=== PATIENT | male | born 1970 | race African-American/Black ===

== ENCOUNTER 2018-09-03 09:07 | Inpatient (IN) ==
[2018-09-03] MEDS ORDERED: NALOXONE 0.4 MG/ML VIAL IV STA (09:19)
[2018-09-03] MEDS ORDERED: NALOXONE 0.4 MG/ML VIAL ONE (09:21)
[2018-09-03 09:48] LABS: Basophils % 0.3 % (0.0-0.8); Eosinophils % 0.3 % (0.00-10.9); Hematocrit 40.9 VOL% (42.0-52.0); Hemoglobin 12.6 GM/DL (14.0-18.0); Immature Granulocytes % 0.1 %; Immature Granulocytes Absolute 0.01 #; Lymphocytes # 0.4 10*3/uL (1.4-4.0); Lymphocytes % 5.8 % (21.2-54.2); Mean Corpuscular HGB Conc 30.8 GM/DL (32-36); Mean Corpuscular Volume 93.4 FL (87-102); Mean Platelet Volume 12.4 FL (9.6-12.0); Monocytes % 10.3 % (1.7-12.7); Neutrophils % 83.2 % (38.7-73.9); Platelet Count 119 T/CUMM (130-400); Red Blood Count 4.38 MC/CUMM (3.8-5.5); Red Cell Distribution Width 15.5 % (9.3-17.3); White Blood Count 7.6 T/CUMM (4-12)
[2018-09-03 10:00] LABS: INR 1.1; PT Patient Result 11.4 SECS; Partial Thromboplastin Time 39.5 SECS (0-40)
[2018-09-03 10:05] LABS: Albumin 3.4 G/DL (3.4-5.0); Bilirubin,Total 0.4 MG/DL (0.2-1.0); CKMB % 5.9 %; Calcium 10.2 MG/DL (8.5-10.1); Osmolality,Calculated 300.7 MOS/KG (273-304); Total Protein 8.1 G/DL (6.4-8.3)
[2018-09-03 10:06] LABS: Troponin I 0.061 NG/ML (0.00-0.045)
[2018-09-03] MEDS ORDERED: CALCIUM GLUCONATE 1,000 MG in SODIUM CHLORIDE 0.9% 100 ML IV ONE (10:16)
[2018-09-03] MEDS ORDERED: ALBUTEROL NEB SOLN 5 MG/ML 20 ML/BOTTLE CONT NEB STA (10:17)
[2018-09-03] MEDS ORDERED: CALCIUM GLUCONATE 1,000 MG/10 ML VIAL IV ONE (10:24)
[2018-09-03] MEDS ORDERED: ONDANSETRON 4 MG/2 ML VIAL IV PRN (11:59)
[2018-09-03] MEDS ORDERED: NALOXONE 0.4 MG/ML VIAL IV ONE ×2 (13:36→13:45)
[2018-09-03] MEDS ORDERED: GLUCAGON 1 MG VIAL IM PRN (15:53)
[2018-09-03] MEDS ORDERED: HEPARIN 10,000 UNIT/10 ML VIAL IV SCH ×2 (16:00)
[2018-09-03] MEDS ORDERED: PHENYLEPH/MINERAL OIL/PETROLAT 57 GM TUBE TOP PRN (16:00)
[2018-09-03] MEDS: INSULIN REGULAR 100 UNIT/ML SUBCUT SCH ×2 (17:08→20:41)
[2018-09-03] MEDS: ENOXAPARIN 30 MG/0.3 ML SYRINGE SUBCUT SCH (22:14)
[2018-09-03] MEDS: FAMOTIDINE 20 MG/2 ML VIAL IV SCH (22:15)
[2018-09-04] MEDS: INSULIN REGULAR 100 UNIT/ML SUBCUT SCH ×6 (00:45→19:59)
[2018-09-04 05:22] LABS: Basophils % 0.3 % (0.0-0.8); Eosinophils % 0.1 % (0.00-10.9); Hematocrit 46.2 VOL% (42.0-52.0); Hemoglobin 12.6 GM/DL (14.0-18.0); Immature Granulocytes % 0.8 %; Immature Granulocytes Absolute 0.12 #; Lymphocytes # 0.9 10*3/uL (1.4-4.0); Lymphocytes % 5.7 % (21.2-54.2); Mean Corpuscular HGB Conc 27.3 GM/DL (32-36); Mean Corpuscular Volume 102.2 FL (87-102); Mean Platelet Volume 11.7 FL (9.6-12.0); Monocytes % 13.3 % (1.7-12.7); Neutrophils % 79.8 % (38.7-73.9); Platelet Count 170 T/CUMM (130-400); Red Blood Count 4.52 MC/CUMM (3.8-5.5); Red Cell Distribution Width 15.5 % (9.3-17.3); White Blood Count 15.4 T/CUMM (4-12)
[2018-09-04 05:52] LABS: Calcium 10.2 MG/DL (8.5-10.1); Osmolality,Calculated 293.7 MOS/KG (273-304); Risk Ratio 2.62; Thyroid Stimulating Hormone 0.713 uIU/ml (0.358-3.74); VLDL CHOLESTEROL 35.2 MG/DL
[2018-09-04 05:57] LABS: Hypochromasia Slight; Ovalocytes 2+; Platelet Estimate Normal; Polychromasia Few
[2018-09-04] MEDS ORDERED: ETOMIDATE 20 MG/10 ML VIAL IV ONE (06:49)
[2018-09-04] MEDS ORDERED: ROCURONIUM 100 MG/10 ML VIAL IV ONE (06:50)
[2018-09-04] MEDS ORDERED: VECURONIUM 10 MG VIAL IV ONE (06:53)
[2018-09-04] MEDS ORDERED: NOREPINEPHRINE 4 MG/4 ML VIAL IV ONE (06:53)
[2018-09-04] MEDS: NOREPINEPHRINE 8 MG in SODIUM CHLORIDE 0.9% 242 ML IV PRN ×3 (07:00→21:52)
[2018-09-04] MEDS ORDERED: INSULIN REGULAR 100 UNIT/ML IV ONE (07:05)
[2018-09-04] MEDS ORDERED: SODIUM POLYSTYRENE SULFATE 15 GM/60 ML BOTTLE PO ONE (07:05)
[2018-09-04] MEDS ORDERED: DEXTROSE 50% 25 GM/50 ML SYRINGE IV ONE (07:06)
[2018-09-04] MEDS ORDERED: CALCIUM GLUCONATE 1,000 MG in SODIUM CHLORIDE 0.9% 100 ML IV ONE (07:06)
[2018-09-04] MEDS: PROPOFOL 1,000 MG/100 ML BOTTLE IV SCH ×3 (09:34→21:49)
[2018-09-04] MEDS: cefTRIAXone 1,000 MG in SYRINGE 1 EACH IV SCH (09:44)
[2018-09-04] MEDS: CLINDAMYCIN INJ 600 MG in PREMIX 1 EACH IV SCH ×2 (09:59→17:12)
[2018-09-04 10:05] LABS: Pt O2 Delivery Device Ventilator
[2018-09-04 10:07] LABS: ABG Base Excess -4.1 MMOL/L (-2.5-2.5); ABG HCO3 26.1 MMOL/L (20-26); ABG Oxygen Saturation 98.3 % (95-100); ABG TCO2 28.4 MMOL/L (23-27)
[2018-09-04 10:13] LABS: ABG PH 7.159 (7.35-7.45)
[2018-09-04] MEDS: DEXTROSE 50% 25 GM/50 ML VIAL IV PRN ×2 (16:46→17:02)
[2018-09-04] MEDS: FAMOTIDINE 20 MG/2 ML VIAL IV SCH (20:07)
[2018-09-04] MEDS: ENOXAPARIN 30 MG/0.3 ML SYRINGE SUBCUT SCH (20:07)
[2018-09-05] MEDS: INSULIN REGULAR 100 UNIT/ML SUBCUT SCH ×7 (00:11→23:15)
[2018-09-05] MEDS: CLINDAMYCIN INJ 600 MG in PREMIX 1 EACH IV SCH ×3 (01:30→16:43)
[2018-09-05 03:20] LABS: ABG Base Excess 1.9 MMOL/L (-2.5-2.5); ABG HCO3 26.1 MMOL/L (20-26); ABG Oxygen Saturation 99.8 % (95-100); ABG PH 7.419 (7.35-7.45); ABG TCO2 23.7 MMOL/L (23-27); Allen Test Positive; Pt O2 Delivery Device Ventilator
[2018-09-05] MEDS: PROPOFOL 1,000 MG/100 ML BOTTLE IV SCH ×2 (03:28→12:07)
[2018-09-05 06:19] LABS: Basophils % 0.3 % (0.0-0.8); Eosinophils # 0.1 10*3/uL (0.0-0.87); Hematocrit 35.4 VOL% (42.0-52.0); Hemoglobin 10.7 GM/DL (14.0-18.0); Immature Granulocytes % 0.7 %; Immature Granulocytes Absolute 0.04 #; Lymphocytes # 0.5 10*3/uL (1.4-4.0); Lymphocytes % 7.7 % (21.2-54.2); Mean Corpuscular HGB Conc 30.2 GM/DL (32-36); Mean Corpuscular Volume 92.7 FL (87-102); Mean Platelet Volume 12.5 FL (9.6-12.0); Monocytes % 16.3 % (1.7-12.7); Red Blood Count 3.82 MC/CUMM (3.8-5.5); Red Cell Distribution Width 15.6 % (9.3-17.3)
[2018-09-05 06:21] LABS: Platelet Count 94 T/CUMM (130-400)
[2018-09-05 06:36] LABS: Calcium 10.7 MG/DL (8.5-10.1); Osmolality,Calculated 285.5 MOS/KG (273-304)
[2018-09-05 06:51] LABS: Band Neutrophils 2 % (0-10); Eosinophils 2 % (0-10); Hypochromasia 1+; Lymphocytes 7 % (20-55); Ovalocytes Slight; Platelet Estimate Decreased; Segmented Neutrophils 79 % (50-85); Total Cells Counted 100
[2018-09-05] MEDS: cefTRIAXone 1,000 MG in SYRINGE 1 EACH IV SCH (08:44)
[2018-09-05] MEDS: METOPROLOL TARTRATE 50 MG TABLET PO SCH ×2 (10:13→20:08)
[2018-09-05] MEDS: DEXMEDETOMIDINE 200 MCG in SODIUM CHLORIDE 0.9% 48 ML IV PRN ×3 (12:04→23:16)
[2018-09-05] MEDS: NOREPINEPHRINE 8 MG in SODIUM CHLORIDE 0.9% 242 ML IV PRN (13:38)
[2018-09-05] MEDS: ENOXAPARIN 30 MG/0.3 ML SYRINGE SUBCUT SCH (20:08)
[2018-09-05] MEDS: FAMOTIDINE 20 MG/2 ML VIAL IV SCH (20:08)
[2018-09-06] MEDS: CLINDAMYCIN INJ 600 MG in PREMIX 1 EACH IV SCH ×3 (02:23→17:51)
[2018-09-06] MEDS: INSULIN REGULAR 100 UNIT/ML SUBCUT SCH ×6 (03:13→23:39)
[2018-09-06] MEDS: NOREPINEPHRINE 8 MG in SODIUM CHLORIDE 0.9% 242 ML IV PRN (03:15)
[2018-09-06 05:50] LABS: Basophils % 0.3 % (0.0-0.8); Eosinophils # 0.1 10*3/uL (0.0-0.87); Eosinophils % 1.7 % (0.00-10.9); Hematocrit 31.6 VOL% (42.0-52.0); Hemoglobin 9.5 GM/DL (14.0-18.0); Immature Granulocytes % 0.9 %; Immature Granulocytes Absolute 0.06 #; Lymphocytes # 0.8 10*3/uL (1.4-4.0); Lymphocytes % 12.1 % (21.2-54.2); Mean Corpuscular HGB Conc 30.1 GM/DL (32-36); Mean Corpuscular Volume 92.7 FL (87-102); Mean Platelet Volume 12.4 FL (9.6-12.0); Red Blood Count 3.41 MC/CUMM (3.8-5.5); Red Cell Distribution Width 15.6 % (9.3-17.3); White Blood Count 6.9 T/CUMM (4-12)
[2018-09-06 05:52] LABS: Platelet Count 84 T/CUMM (130-400)
[2018-09-06 06:01] LABS: Calcium 10.1 MG/DL (8.5-10.1); Osmolality,Calculated 285.8 MOS/KG (273-304)
[2018-09-06 06:15] LABS: Band Neutrophils 4 % (0-10); Eosinophils 2 % (0-10); Lymphocytes 18 % (20-55); Segmented Neutrophils 71 % (50-85); Total Cells Counted 100
[2018-09-06 06:16] LABS: Atypical Lymphocytes Few; Hypochromasia 1+; Microcytosis Slight; Ovalocytes Slight
[2018-09-06 06:17] LABS: Platelet Estimate Decreased
[2018-09-06] MEDS: DEXMEDETOMIDINE 200 MCG in SODIUM CHLORIDE 0.9% 48 ML IV PRN ×3 (07:51→19:39)
[2018-09-06] MEDS: DEXTROSE 50% 25 GM/50 ML VIAL IV PRN (07:52)
[2018-09-06] MEDS: cefTRIAXone 1,000 MG in SYRINGE 1 EACH IV SCH (08:27)
[2018-09-06] MEDS: METOPROLOL TARTRATE 50 MG TABLET PO SCH ×2 (08:36→20:18)
[2018-09-06] MEDS: PROPOFOL 1,000 MG/100 ML BOTTLE IV SCH (10:13)
[2018-09-06] MEDS: ATORVASTATIN 40 MG TABLET PO SCH (20:18)
[2018-09-06] MEDS: ENOXAPARIN 30 MG/0.3 ML SYRINGE SUBCUT SCH (20:18)
[2018-09-06] MEDS: FAMOTIDINE 20 MG/2 ML VIAL IV SCH (20:18)
[2018-09-07] MEDS: DEXMEDETOMIDINE 200 MCG in SODIUM CHLORIDE 0.9% 48 ML IV PRN ×2 (00:14→05:54)
[2018-09-07] MEDS: CLINDAMYCIN INJ 600 MG in PREMIX 1 EACH IV SCH ×2 (00:15→09:31)
[2018-09-07 03:32] LABS: Allen Test Positive; Pt O2 Delivery Device Ventilator
[2018-09-07 03:35] LABS: ABG HCO3 24.5 MMOL/L (20-26); ABG Oxygen Saturation 99.3 % (95-100); ABG PCO2 34.1 MM HG (35-48); ABG PH 7.449 (7.35-7.45); ABG TCO2 21.5 MMOL/L (23-27)
[2018-09-07] MEDS: INSULIN REGULAR 100 UNIT/ML SUBCUT SCH ×5 (03:51→19:57)
[2018-09-07 05:21] LABS: Basophils % 0.2 % (0.0-0.8); Eosinophils # 0.1 10*3/uL (0.0-0.87); Hematocrit 30.8 VOL% (42.0-52.0); Hemoglobin 9.4 GM/DL (14.0-18.0); Immature Granulocytes % 0.8 %; Immature Granulocytes Absolute 0.04 #; Lymphocytes # 0.5 10*3/uL (1.4-4.0); Lymphocytes % 9.7 % (21.2-54.2); Mean Corpuscular HGB Conc 30.5 GM/DL (32-36); Mean Corpuscular Volume 90.6 FL (87-102); Mean Platelet Volume 12.3 FL (9.6-12.0); Monocytes % 16.3 % (1.7-12.7); Red Cell Distribution Width 15.7 % (9.3-17.3)
[2018-09-07 05:25] LABS: Platelet Count 99 T/CUMM (130-400)
[2018-09-07 05:44] LABS: Eosinophils 2 % (0-10); Hypochromasia 1+; Lymphocytes 9 % (20-55); Platelet Estimate Decreased; Segmented Neutrophils 68 % (50-85); Total Cells Counted 100
[2018-09-07 05:44] LABS: Osmolality,Calculated 284.8 MOS/KG (273-304); Prealbumin 14.6 MG/DL (20-40)
[2018-09-07 05:45] LABS: Calcium 10.2 MG/DL (8.5-10.1); Microcytosis Slight; Osmolality,Calculated 286.7 MOS/KG (273-304); Ovalocytes Slight
[2018-09-07] MEDS ORDERED: ASPIRIN EC 81 MG TABLET PO SCH (08:00)
[2018-09-07] MEDS: METOPROLOL TARTRATE 50 MG TABLET PO SCH ×2 (09:21→22:52)
[2018-09-07] MEDS: cefTRIAXone 1,000 MG in SYRINGE 1 EACH IV SCH (09:31)
[2018-09-07] MEDS: ASPIRIN CHEW 81 MG TABLET PO SCH (09:31)
[2018-09-07] MEDS ORDERED: VANCOMYCIN INJ 500 MG in SODIUM CHLORIDE 0.9% 100 ML IV PRN (13:25)
[2018-09-07] MEDS ORDERED: VANCOMYCIN INJ 1,250 MG in SODIUM CHLORIDE 0.9% 250 ML IV ONE (14:00)
[2018-09-07] MEDS: SEVELAMER CARBONATE 800 MG TABLET PO SCH (14:42)
[2018-09-07] MEDS: SEVELAMER CARBONATE POWDER 2.4 GM PACK PO SCH (18:06)
[2018-09-07] MEDS ORDERED: ACETAMINOPHEN 325 MG/10.15 ML UDCUP PO PRN (19:03)
[2018-09-07] MEDS: ENOXAPARIN 30 MG/0.3 ML SYRINGE SUBCUT SCH (20:08)
[2018-09-07] MEDS: FAMOTIDINE 20 MG/2 ML VIAL IV SCH (20:09)
[2018-09-07] MEDS: ATORVASTATIN 40 MG TABLET PO SCH (20:09)
[2018-09-08] MEDS: INSULIN REGULAR 100 UNIT/ML SUBCUT SCH ×6 (00:02→20:40)
[2018-09-08 03:35] LABS: Allen Test Positive; Pt O2 Delivery Device Ventilator
[2018-09-08 03:38] LABS: ABG Base Excess -0.4 MMOL/L (-2.5-2.5); ABG HCO3 24.1 MMOL/L (20-26); ABG Oxygen Saturation 96.8 % (95-100); ABG PCO2 42.1 MM HG (35-48); ABG PH 7.378 (7.35-7.45); ABG PO2 94.5 MM HG (80-95); ABG TCO2 22.8 MMOL/L (23-27)
[2018-09-08 05:18] LABS: Basophils % 0.2 % (0.0-0.8); Eosinophils # 0.1 10*3/uL (0.0-0.87); Eosinophils % 2.7 % (0.00-10.9); Hematocrit 28.7 VOL% (42.0-52.0); Hemoglobin 9.1 GM/DL (14.0-18.0); Immature Granulocytes % 0.4 %; Immature Granulocytes Absolute 0.02 #; Lymphocytes # 0.5 10*3/uL (1.4-4.0); Lymphocytes % 10.6 % (21.2-54.2); Mean Corpuscular HGB Conc 31.7 GM/DL (32-36); Mean Corpuscular Volume 89.1 FL (87-102); Mean Platelet Volume 11.1 FL (9.6-12.0); Neutrophils % 72.1 % (38.7-73.9); Red Blood Count 3.22 MC/CUMM (3.8-5.5); Red Cell Distribution Width 15.7 % (9.3-17.3); White Blood Count 4.7 T/CUMM (4-12)
[2018-09-08 05:20] LABS: Platelet Count 96 T/CUMM (130-400)
[2018-09-08 05:42] LABS: Calcium 9.7 MG/DL (8.5-10.1); Osmolality,Calculated 291.1 MOS/KG (273-304)
[2018-09-08] MEDS ORDERED: CLINDAMYCIN INJ 600 MG in PREMIX 1 EACH IV SCH (09:00)
[2018-09-08] MEDS: SEVELAMER CARBONATE POWDER 2.4 GM PACK PO SCH ×3 (09:15→17:27)
[2018-09-08] MEDS: cefTRIAXone 1,000 MG in SYRINGE 1 EACH IV SCH (09:16)
[2018-09-08] MEDS: METOPROLOL TARTRATE 50 MG TABLET PO SCH (10:14)
[2018-09-08] MEDS: METOPROLOL TARTRATE 25 MG TABLET PO SCH ×2 (13:44→20:20)
[2018-09-08] MEDS: ASPIRIN CHEW 81 MG TABLET PO SCH (13:44)
[2018-09-08] MEDS ORDERED: ALBUTEROL/IPRATROPIUM 3 ML NEB RESP TX PRN (14:59)
[2018-09-08] MEDS: SEVELAMER CARBONATE 800 MG TABLET PO SCH (15:14)
[2018-09-08] MEDS: ALBUTEROL/IPRATROPIUM 3 ML NEB RESP TX SCH ×3 (15:32→23:07)
[2018-09-08] MEDS: ACETYLCYSTEINE 20% 800 MG/4 ML VIAL RESP TX SCH ×2 (15:32→23:07)
[2018-09-08 16:16] LABS: ABG HCO3 22.6 MMOL/L (20-26); ABG Oxygen Saturation 92.7 % (95-100); ABG PCO2 49.6 MM HG (35-48); ABG PH 7.307 (7.35-7.45); ABG PO2 75.8 MM HG (80-95); ABG TCO2 22.4 MMOL/L (23-27); Allen Test Positive; Pt O2 Delivery Device Simple Mask
[2018-09-08] MEDS ORDERED: VANCOMYCIN INJ 500 MG in SODIUM CHLORIDE 0.9% 100 ML IV PRN (16:20)
[2018-09-08] MEDS ORDERED: ETOMIDATE 20 MG/10 ML VIAL IV ONE ×4 (16:29→16:47)
[2018-09-08] MEDS ORDERED: SUCCINYLCHOLINE 200 MG/10 ML VIAL ONE (16:30)
[2018-09-08] MEDS ORDERED: SUCCINYLCHOLINE 200 MG/10 ML VIAL IV ONE (16:45)
[2018-09-08] MEDS: PROPOFOL 1,000 MG/100 ML BOTTLE IV SCH ×2 (16:55→21:02)
[2018-09-08] MEDS ORDERED: VANCOMYCIN INJ 500 MG in SODIUM CHLORIDE 0.9% 100 ML IV ONE (17:00)
[2018-09-08] MEDS ORDERED: DEXMEDETOMIDINE 200 MCG in SODIUM CHLORIDE 0.9% 48 ML IV PRN (17:30)
[2018-09-08 18:39] LABS: ABG Base Excess -0.5 MMOL/L (-2.5-2.5); ABG Oxygen Saturation 99.9 % (95-100); ABG PCO2 31.6 MM HG (35-48); ABG PH 7.463 (7.35-7.45); ABG TCO2 20.5 MMOL/L (23-27); Allen Test Positive; Pt O2 Delivery Device Ventilator
[2018-09-08] MEDS: ENOXAPARIN 30 MG/0.3 ML SYRINGE SUBCUT SCH (20:20)
[2018-09-08] MEDS: ATORVASTATIN 40 MG TABLET PO SCH (20:21)
[2018-09-08 21:21] LABS: ABG Base Excess -1.7 MMOL/L (-2.5-2.5); ABG Oxygen Saturation 99.5 % (95-100); ABG PCO2 38.5 MM HG (35-48); ABG PH 7.385 (7.35-7.45); Allen Test Positive; Pt O2 Delivery Device Ventilator
[2018-09-08] MEDS: FAMOTIDINE 20 MG/2 ML VIAL IV SCH (21:59)
[2018-09-08] MEDS ORDERED: DEXTROSE 10% 250 ML BAG IV ONE (22:25)
[2018-09-08] MEDS: DEXTROSE 10% 250 ML IV SCH (23:00)
[2018-09-09] MEDS: ALBUTEROL/IPRATROPIUM 3 ML NEB RESP TX SCH ×6 (02:07→23:05)
[2018-09-09] MEDS: PROPOFOL 1,000 MG/100 ML BOTTLE IV SCH ×6 (03:16→21:41)
[2018-09-09 03:56] LABS: ABG Base Excess -2.3 MMOL/L (-2.5-2.5); ABG HCO3 22.4 MMOL/L (20-26); ABG Oxygen Saturation 95.4 % (95-100); ABG PCO2 39.3 MM HG (35-48); ABG PO2 82.2 MM HG (80-95); ABG TCO2 20.8 MMOL/L (23-27); Allen Test Positive; Pt O2 Delivery Device Ventilator
[2018-09-09] MEDS: INSULIN REGULAR 100 UNIT/ML SUBCUT SCH ×6 (04:30→20:27)
[2018-09-09] MEDS: DEXTROSE 10% 250 ML IV PRN ×2 (04:45→07:54)
[2018-09-09 05:42] LABS: Eosinophils # 0.1 10*3/uL (0.0-0.87); Eosinophils % 4.1 % (0.00-10.9); Hemoglobin 9.2 GM/DL (14.0-18.0); Immature Granulocytes % 0.6 %; Immature Granulocytes Absolute 0.02 #; Lymphocytes # 0.5 10*3/uL (1.4-4.0); Lymphocytes % 15.1 % (21.2-54.2); Mean Corpuscular HGB Conc 31.7 GM/DL (32-36); Mean Corpuscular Volume 89.2 FL (87-102); Mean Platelet Volume 11.7 FL (9.6-12.0); Neutrophils % 62.2 % (38.7-73.9); Platelet Count 106 T/CUMM (130-400); Red Blood Count 3.25 MC/CUMM (3.8-5.5); Red Cell Distribution Width 15.8 % (9.3-17.3); White Blood Count 3.4 T/CUMM (4-12)
[2018-09-09 06:03] LABS: Calcium 10.2 MG/DL (8.5-10.1)
[2018-09-09 06:20] LABS: Band Neutrophils 1 % (0-10); Eosinophils 5 % (0-10); Hypochromasia 1+; Lymphocytes 11 % (20-55); Ovalocytes Slight; Platelet Estimate Decreased; Segmented Neutrophils 71 % (50-85); Total Cells Counted 100
[2018-09-09 06:21] LABS: Microcytosis Slight
[2018-09-09] MEDS: ACETYLCYSTEINE 20% 800 MG/4 ML VIAL RESP TX SCH ×3 (06:59→23:05)
[2018-09-09] MEDS: DEXTROSE 10% 250 ML IV SCH ×3 (08:15→17:46)
[2018-09-09] MEDS: ASPIRIN CHEW 81 MG TABLET PO SCH (08:58)
[2018-09-09] MEDS: SEVELAMER CARBONATE POWDER 2.4 GM PACK PO SCH ×3 (09:01→17:47)
[2018-09-09] MEDS: cefTRIAXone 1,000 MG in SYRINGE 1 EACH IV SCH (09:02)
[2018-09-09] MEDS: METOPROLOL TARTRATE 25 MG TABLET PO SCH ×2 (10:00→20:03)
[2018-09-09] MEDS ORDERED: LEVOFLOXACIN INJ 750 MG in PREMIX 1 EACH IV ONE (13:00)
[2018-09-09] MEDS: SEVELAMER CARBONATE 800 MG TABLET PO SCH (13:50)
[2018-09-09] MEDS ORDERED: ALBUMIN 25% 25 GM in PREMIX 1 EACH IV ONE (15:30)
[2018-09-09] MEDS ORDERED: LORazepam 2 MG/1 ML VIAL IV ONE (17:00)
[2018-09-09] MEDS: methylPREDNISolone SOD SUC 40 MG/1 ML VIAL IV SCH ×2 (17:41→21:16)
[2018-09-09] MEDS: FAMOTIDINE 20 MG/2 ML VIAL IV SCH (20:03)
[2018-09-09] MEDS: ENOXAPARIN 30 MG/0.3 ML SYRINGE SUBCUT SCH (20:03)
[2018-09-09] MEDS: ATORVASTATIN 40 MG TABLET PO SCH (20:03)
[2018-09-10] MEDS: INSULIN REGULAR 100 UNIT/ML SUBCUT SCH ×7 (00:45→23:56)
[2018-09-10] MEDS: PROPOFOL 1,000 MG/100 ML BOTTLE IV SCH ×7 (01:45→19:57)
[2018-09-10] MEDS: DEXTROSE 10% 250 ML IV SCH ×2 (02:12→08:20)
[2018-09-10] MEDS: ALBUTEROL/IPRATROPIUM 3 ML NEB RESP TX SCH ×6 (03:35→23:15)
[2018-09-10 03:42] LABS: ABG Base Excess -4.2 MMOL/L (-2.5-2.5); ABG HCO3 21.2 MMOL/L (20-26); ABG Oxygen Saturation 77.5 % (95-100); ABG PCO2 39.7 MM HG (35-48); ABG PH 7.345 (7.35-7.45); ABG PO2 52.9 MM HG (80-95); ABG TCO2 22.4 MMOL/L (23-27); Allen Test Positive; Pt O2 Delivery Device Ventilator
[2018-09-10] MEDS: methylPREDNISolone SOD SUC 40 MG/1 ML VIAL IV SCH ×3 (05:07→21:28)
[2018-09-10 05:50] LABS: Calcium 9.7 MG/DL (8.5-10.1); Osmolality,Calculated 284.2 MOS/KG (273-304)
[2018-09-10] MEDS: ACETYLCYSTEINE 20% 800 MG/4 ML VIAL RESP TX SCH ×3 (07:05→23:15)
[2018-09-10 07:30] LABS: ABG Base Excess -5.4 MMOL/L (-2.5-2.5); ABG Oxygen Saturation 99.4 % (95-100); ABG PCO2 33.7 MM HG (35-48); ABG PH 7.366 (7.35-7.45); ABG TCO2 17.8 MMOL/L (23-27); Allen Test Positive; Pt O2 Delivery Device Ventilator
[2018-09-10] MEDS: ASPIRIN CHEW 81 MG TABLET PO SCH (09:04)
[2018-09-10] MEDS: SEVELAMER CARBONATE POWDER 2.4 GM PACK PO SCH ×3 (09:04→17:09)
[2018-09-10] MEDS: METOPROLOL TARTRATE 25 MG TABLET PO SCH ×2 (09:38→21:27)
[2018-09-10] MEDS: SEVELAMER CARBONATE 800 MG TABLET PO SCH (13:10)
[2018-09-10 15:48] LABS: Allen Test Positive; Pt O2 Delivery Device Ventilator
[2018-09-10 15:49] LABS: ABG Base Excess -3.4 MMOL/L (-2.5-2.5); ABG HCO3 21.4 MMOL/L (20-26); ABG Oxygen Saturation 83.2 % (95-100); ABG PH 7.321 (7.35-7.45); ABG TCO2 20.8 MMOL/L (23-27)
[2018-09-10] MEDS ORDERED: BISACODYL 5 MG TABLET PO ONE (15:53)
[2018-09-10] MEDS: METOCLOPRAMIDE 10 MG/2 ML VIAL IV SCH ×2 (17:54→23:56)
[2018-09-10 18:36] LABS: ABG Base Excess -3.4 MMOL/L (-2.5-2.5); ABG HCO3 21.6 MMOL/L (20-26); ABG Oxygen Saturation 95.4 % (95-100); ABG PCO2 36.2 MM HG (35-48); ABG PH 7.378 (7.35-7.45); ABG PO2 80.2 MM HG (80-95); ABG TCO2 19.3 MMOL/L (23-27); Allen Test Positive; Pt O2 Delivery Device Ventilator
[2018-09-10] MEDS: ATORVASTATIN 40 MG TABLET PO SCH (21:27)
[2018-09-10] MEDS: ENOXAPARIN 30 MG/0.3 ML SYRINGE SUBCUT SCH (21:28)
[2018-09-10] MEDS: POLYETHYLENE GLYCOL POWDER 17 GM PACK PO SCH (21:29)
[2018-09-10] MEDS: FAMOTIDINE 20 MG/2 ML VIAL IV SCH (21:29)
[2018-09-11] MEDS: PROPOFOL 1,000 MG/100 ML BOTTLE IV SCH ×9 (00:05→21:20)
[2018-09-11] MEDS: ALBUTEROL/IPRATROPIUM 3 ML NEB RESP TX SCH ×6 (02:50→22:55)
[2018-09-11] MEDS: INSULIN REGULAR 100 UNIT/ML SUBCUT SCH ×5 (04:31→21:15)
[2018-09-11 04:56] LABS: ABG Base Excess -3.9 MMOL/L (-2.5-2.5); ABG HCO3 21.2 MMOL/L (20-26); ABG Oxygen Saturation 98.5 % (95-100); ABG PCO2 34.5 MM HG (35-48); ABG PH 7.383 (7.35-7.45); ABG TCO2 18.8 MMOL/L (23-27)
[2018-09-11 05:12] LABS: Hematocrit 28.9 VOL% (42.0-52.0); Hemoglobin 9.5 GM/DL (14.0-18.0); Immature Granulocytes % 1.2 %; Immature Granulocytes Absolute 0.06 #; Lymphocytes # 0.3 10*3/uL (1.4-4.0); Lymphocytes % 5.4 % (21.2-54.2); Mean Corpuscular HGB Conc 32.9 GM/DL (32-36); Mean Corpuscular Volume 87.6 FL (87-102); Monocytes % 9.8 % (1.7-12.7); Neutrophils % 83.6 % (38.7-73.9); Platelet Count 147 T/CUMM (130-400); Red Cell Distribution Width 15.7 % (9.3-17.3)
[2018-09-11] MEDS: methylPREDNISolone SOD SUC 40 MG/1 ML VIAL IV SCH ×3 (05:40→21:15)
[2018-09-11] MEDS: METOCLOPRAMIDE 10 MG/2 ML VIAL IV SCH ×3 (05:41→17:55)
[2018-09-11] MEDS: ACETYLCYSTEINE 20% 800 MG/4 ML VIAL RESP TX SCH ×3 (07:35→22:55)
[2018-09-11] MEDS ORDERED: BISACODYL 5 MG TABLET PO ONE (08:36)
[2018-09-11 08:52] LABS: Albumin 2.9 G/DL (3.4-5.0); Calcium 9.6 MG/DL (8.5-10.1); Osmolality,Calculated 287.7 MOS/KG (273-304)
[2018-09-11] MEDS: LACTULOSE 20 GM/30 ML UDCUP PO SCH (08:55)
[2018-09-11] MEDS: METOPROLOL TARTRATE 25 MG TABLET PO SCH ×2 (08:56→21:14)
[2018-09-11] MEDS: ASPIRIN CHEW 81 MG TABLET PO SCH (08:57)
[2018-09-11] MEDS: POLYETHYLENE GLYCOL POWDER 17 GM PACK PO SCH ×2 (08:57→21:14)
[2018-09-11] MEDS: SEVELAMER CARBONATE POWDER 2.4 GM PACK PO SCH ×3 (08:57→17:54)
[2018-09-11] MEDS: POTASSIUM IODIDE ORAL SOLN 1,000 MG/ML BOTTLE PO SCH ×3 (09:10→21:16)
[2018-09-11] MEDS: LEVOFLOXACIN INJ 500 MG in PREMIX 1 EACH IV SCH (12:45)
[2018-09-11] MEDS: SEVELAMER CARBONATE 800 MG TABLET PO SCH (13:54)
[2018-09-11] MEDS: ENOXAPARIN 30 MG/0.3 ML SYRINGE SUBCUT SCH (21:14)
[2018-09-11] MEDS: FAMOTIDINE 20 MG/2 ML VIAL IV SCH (21:15)
[2018-09-11] MEDS: ATORVASTATIN 40 MG TABLET PO SCH (21:15)
[2018-09-12] MEDS: INSULIN REGULAR 100 UNIT/ML SUBCUT SCH ×6 (00:13→20:21)
[2018-09-12] MEDS: METOCLOPRAMIDE 10 MG/2 ML VIAL IV SCH ×4 (00:13→18:14)
[2018-09-12] MEDS: PROPOFOL 1,000 MG/100 ML BOTTLE IV SCH ×7 (00:14→21:03)
[2018-09-12] MEDS: ALBUTEROL/IPRATROPIUM 3 ML NEB RESP TX SCH ×5 (02:00→20:13)
[2018-09-12 04:00] LABS: ABG Base Excess -5.2 MMOL/L (-2.5-2.5); ABG HCO3 20.1 MMOL/L (20-26); ABG Oxygen Saturation 97.7 % (95-100); ABG PCO2 36.5 MM HG (35-48); ABG PH 7.346 (7.35-7.45); ABG TCO2 18.4 MMOL/L (23-27); Allen Test Positive; Pt O2 Delivery Device Ventilator
[2018-09-12] MEDS: methylPREDNISolone SOD SUC 40 MG/1 ML VIAL IV SCH ×3 (05:35→21:02)
[2018-09-12 05:40] LABS: Basophils % 0.2 % (0.0-0.8); Hematocrit 28.9 VOL% (42.0-52.0); Hemoglobin 9.4 GM/DL (14.0-18.0); Immature Granulocytes % 2.6 %; Immature Granulocytes Absolute 0.12 #; Lymphocytes # 0.5 10*3/uL (1.4-4.0); Lymphocytes % 9.8 % (21.2-54.2); Mean Corpuscular HGB Conc 32.5 GM/DL (32-36); Mean Corpuscular Volume 87.6 FL (87-102); Mean Platelet Volume 11.4 FL (9.6-12.0); Monocytes % 9.3 % (1.7-12.7); Neutrophils % 78.1 % (38.7-73.9); Platelet Count 170 T/CUMM (130-400); Red Cell Distribution Width 15.9 % (9.3-17.3); White Blood Count 4.6 T/CUMM (4-12)
[2018-09-12 07:03] LABS: Calcium 9.5 MG/DL (8.5-10.1); Osmolality,Calculated 284.5 MOS/KG (273-304)
[2018-09-12] MEDS: ACETYLCYSTEINE 20% 800 MG/4 ML VIAL RESP TX SCH ×2 (07:35→15:00)
[2018-09-12 08:22] LABS: Prealbumin 24.6 MG/DL (20-40)
[2018-09-12] MEDS: SEVELAMER CARBONATE POWDER 2.4 GM PACK PO SCH ×3 (09:35→18:14)
[2018-09-12] MEDS: POLYETHYLENE GLYCOL POWDER 17 GM PACK PO SCH ×2 (09:35→20:23)
[2018-09-12] MEDS: LACTULOSE 20 GM/30 ML UDCUP PO SCH (09:35)
[2018-09-12] MEDS: METOPROLOL TARTRATE 25 MG TABLET PO SCH ×2 (09:36→20:22)
[2018-09-12] MEDS: ASPIRIN CHEW 81 MG TABLET PO SCH (09:36)
[2018-09-12] MEDS: POTASSIUM IODIDE ORAL SOLN 1,000 MG/ML BOTTLE PO SCH (10:02)
[2018-09-12] MEDS: SEVELAMER CARBONATE 800 MG TABLET PO SCH (13:49)
[2018-09-12] MEDS: ATORVASTATIN 40 MG TABLET PO SCH (20:22)
[2018-09-12] MEDS: ENOXAPARIN 30 MG/0.3 ML SYRINGE SUBCUT SCH (20:22)
[2018-09-12] MEDS: FAMOTIDINE 20 MG/2 ML VIAL IV SCH (20:23)
[2018-09-13] MEDS: ALBUTEROL/IPRATROPIUM 3 ML NEB RESP TX SCH ×7 (00:23→23:15)
[2018-09-13] MEDS: ACETYLCYSTEINE 20% 800 MG/4 ML VIAL RESP TX SCH ×4 (00:23→23:15)
[2018-09-13] MEDS: INSULIN REGULAR 100 UNIT/ML SUBCUT SCH ×6 (00:36→20:23)
[2018-09-13] MEDS: METOCLOPRAMIDE 10 MG/2 ML VIAL IV SCH ×4 (00:54→18:19)
[2018-09-13] MEDS: PROPOFOL 1,000 MG/100 ML BOTTLE IV SCH ×9 (00:55→23:40)
[2018-09-13 03:39] LABS: ABG Base Excess -2.5 MMOL/L (-2.5-2.5); ABG HCO3 22.3 MMOL/L (20-26); ABG Oxygen Saturation 97.5 % (95-100); ABG PCO2 37.5 MM HG (35-48); ABG PH 7.381 (7.35-7.45); ABG TCO2 20.3 MMOL/L (23-27); Allen Test Positive; Pt O2 Delivery Device Ventilator
[2018-09-13 05:25] LABS: Hematocrit 28.2 VOL% (42.0-52.0); Hemoglobin 9.4 GM/DL (14.0-18.0); Immature Granulocytes % 5.7 %; Immature Granulocytes Absolute 0.23 #; Lymphocytes # 0.5 10*3/uL (1.4-4.0); Lymphocytes % 13.3 % (21.2-54.2); Mean Corpuscular HGB Conc 33.3 GM/DL (32-36); Mean Corpuscular Volume 84.7 FL (87-102); Mean Platelet Volume 10.8 FL (9.6-12.0); Monocytes % 12.1 % (1.7-12.7); Neutrophils % 68.9 % (38.7-73.9); Platelet Count 186 T/CUMM (130-400); Red Blood Count 3.33 MC/CUMM (3.8-5.5); Red Cell Distribution Width 15.9 % (9.3-17.3); White Blood Count 4.1 T/CUMM (4-12)
[2018-09-13 05:43] LABS: Calcium 9.6 MG/DL (8.5-10.1); Osmolality,Calculated 281.2 MOS/KG (273-304)
[2018-09-13 05:56] LABS: Lymphocytes 15 % (20-55); Segmented Neutrophils 70 % (50-85); Total Cells Counted 100
[2018-09-13 05:57] LABS: Hypochromasia 1+; Microcytosis 1+; Ovalocytes Slight
[2018-09-13 05:58] LABS: Platelet Estimate Adequate
[2018-09-13] MEDS: methylPREDNISolone SOD SUC 40 MG/1 ML VIAL IV SCH ×3 (06:14→21:19)
[2018-09-13] MEDS: LACTULOSE 20 GM/30 ML UDCUP PO SCH (08:32)
[2018-09-13] MEDS: POLYETHYLENE GLYCOL POWDER 17 GM PACK PO SCH ×2 (08:36→21:19)
[2018-09-13] MEDS: ASPIRIN CHEW 81 MG TABLET PO SCH (08:36)
[2018-09-13] MEDS: METOPROLOL TARTRATE 25 MG TABLET PO SCH ×2 (08:36→21:18)
[2018-09-13] MEDS: SEVELAMER CARBONATE POWDER 2.4 GM PACK PO SCH ×3 (08:37→18:16)
[2018-09-13] MEDS: LEVOFLOXACIN INJ 500 MG in PREMIX 1 EACH IV SCH (15:24)
[2018-09-13] MEDS: ATORVASTATIN 40 MG TABLET PO SCH ×2 (20:54→21:21)
[2018-09-13] MEDS: ENOXAPARIN 30 MG/0.3 ML SYRINGE SUBCUT SCH (21:19)
[2018-09-13] MEDS: FAMOTIDINE 20 MG/2 ML VIAL IV SCH (21:19)
[2018-09-14] MEDS: INSULIN REGULAR 100 UNIT/ML SUBCUT SCH ×7 (00:39→23:24)
[2018-09-14] MEDS: PROPOFOL 1,000 MG/100 ML BOTTLE IV SCH ×3 (00:56→06:05)
[2018-09-14] MEDS: METOCLOPRAMIDE 10 MG/2 ML VIAL IV SCH ×5 (00:59→23:25)
[2018-09-14] MEDS: ALBUTEROL/IPRATROPIUM 3 ML NEB RESP TX SCH ×6 (03:45→23:14)
[2018-09-14 04:04] LABS: ABG Base Excess -1.2 MMOL/L (-2.5-2.5); ABG HCO3 23.4 MMOL/L (20-26); ABG Oxygen Saturation 98.3 % (95-100); ABG PCO2 40.7 MM HG (35-48); ABG PH 7.376 (7.35-7.45); ABG TCO2 21.9 MMOL/L (23-27)
[2018-09-14] MEDS: methylPREDNISolone SOD SUC 40 MG/1 ML VIAL IV SCH ×3 (05:13→21:28)
[2018-09-14 05:45] LABS: Basophils % 0.2 % (0.0-0.8); Hematocrit 31.2 VOL% (42.0-52.0); Hemoglobin 10.1 GM/DL (14.0-18.0); Immature Granulocytes % 6.2 %; Immature Granulocytes Absolute 0.33 #; Lymphocytes # 0.7 10*3/uL (1.4-4.0); Lymphocytes % 13.4 % (21.2-54.2); Mean Corpuscular HGB Conc 32.4 GM/DL (32-36); Mean Corpuscular Volume 88.6 FL (87-102); Mean Platelet Volume 10.5 FL (9.6-12.0); Monocytes % 15.1 % (1.7-12.7); Neutrophils % 65.1 % (38.7-73.9); Platelet Count 177 T/CUMM (130-400); Red Blood Count 3.52 MC/CUMM (3.8-5.5); Red Cell Distribution Width 16.2 % (9.3-17.3); White Blood Count 5.3 T/CUMM (4-12)
[2018-09-14 06:12] LABS: Osmolality,Calculated 276.1 MOS/KG (273-304)
[2018-09-14 06:13] LABS: Hypochromasia 1+; Lymphocytes 13 % (20-55); Microcytosis Slight; Nucleated Red Blood Cells 1 (0-5); Platelet Estimate Adequate; Segmented Neutrophils 76 % (50-85); Total Cells Counted 100
[2018-09-14] MEDS: ACETYLCYSTEINE 20% 800 MG/4 ML VIAL RESP TX SCH ×3 (07:15→23:14)
[2018-09-14] MEDS: SEVELAMER CARBONATE POWDER 2.4 GM PACK PO SCH ×3 (08:46→17:33)
[2018-09-14] MEDS: METOPROLOL TARTRATE 25 MG TABLET PO SCH ×2 (08:46→20:08)
[2018-09-14] MEDS: LACTULOSE 20 GM/30 ML UDCUP PO SCH (08:46)
[2018-09-14] MEDS: ASPIRIN CHEW 81 MG TABLET PO SCH (08:46)
[2018-09-14] MEDS: POLYETHYLENE GLYCOL POWDER 17 GM PACK PO SCH ×2 (08:47→20:09)
[2018-09-14] MEDS: ATORVASTATIN 40 MG TABLET PO SCH (20:09)
[2018-09-14] MEDS: ENOXAPARIN 30 MG/0.3 ML SYRINGE SUBCUT SCH (20:09)
[2018-09-14] MEDS: FAMOTIDINE 20 MG/2 ML VIAL IV SCH (20:09)
[2018-09-15] MEDS: ALBUTEROL/IPRATROPIUM 3 ML NEB RESP TX SCH ×5 (02:33→19:48)
[2018-09-15 04:23] LABS: ABG Base Excess -2.7 MMOL/L (-2.5-2.5); ABG HCO3 22.9 MMOL/L (20-26); ABG Oxygen Saturation 94.4 % (95-100); ABG PCO2 42.9 MM HG (35-48); ABG PH 7.345 (7.35-7.45); ABG PO2 84.1 MM HG (80-95); ABG TCO2 24.2 MMOL/L (23-27); Allen Test Positive
[2018-09-15 04:29] LABS: Basophils % 0.3 % (0.0-0.8); Eosinophils % 0.1 % (0.00-10.9); Hematocrit 29.8 VOL% (42.0-52.0); Hemoglobin 9.6 GM/DL (14.0-18.0); Immature Granulocytes % 4.4 %; Lymphocytes # 0.5 10*3/uL (1.4-4.0); Lymphocytes % 7.8 % (21.2-54.2); Mean Corpuscular HGB Conc 32.2 GM/DL (32-36); Mean Corpuscular Volume 86.4 FL (87-102); Mean Platelet Volume 10.7 FL (9.6-12.0); Monocytes % 8.8 % (1.7-12.7); Neutrophils % 78.6 % (38.7-73.9); Platelet Count 220 T/CUMM (130-400); Red Blood Count 3.45 MC/CUMM (3.8-5.5); Red Cell Distribution Width 15.6 % (9.3-17.3); White Blood Count 6.8 T/CUMM (4-12)
[2018-09-15 04:44] LABS: Calcium 9.9 MG/DL (8.5-10.1); Osmolality,Calculated 285.1 MOS/KG (273-304)
[2018-09-15] MEDS: INSULIN REGULAR 100 UNIT/ML SUBCUT SCH ×5 (05:12→19:42)
[2018-09-15] MEDS: methylPREDNISolone SOD SUC 40 MG/1 ML VIAL IV SCH ×2 (05:17→12:15)
[2018-09-15] MEDS: METOCLOPRAMIDE 10 MG/2 ML VIAL IV SCH (05:20)
[2018-09-15] MEDS: ACETYLCYSTEINE 20% 800 MG/4 ML VIAL RESP TX SCH ×2 (07:20→15:22)
[2018-09-15] MEDS: LACTULOSE 20 GM/30 ML UDCUP PO SCH (08:22)
[2018-09-15] MEDS: POLYETHYLENE GLYCOL POWDER 17 GM PACK PO SCH (08:22)
[2018-09-15] MEDS: ASPIRIN CHEW 81 MG TABLET PO SCH (08:22)
[2018-09-15] MEDS: SEVELAMER CARBONATE POWDER 2.4 GM PACK PO SCH ×3 (08:23→17:42)
[2018-09-15] MEDS: METOPROLOL TARTRATE 25 MG TABLET PO SCH ×2 (08:23→20:22)
[2018-09-15] MEDS ORDERED: POLYETHYLENE GLYCOL POWDER 17 GM PACK PO PRN (11:27)
[2018-09-15] MEDS ORDERED: LACTULOSE 20 GM/30 ML UDCUP PO PRN (11:27)
[2018-09-15] MEDS: LEVOFLOXACIN INJ 500 MG in PREMIX 1 EACH IV SCH (17:42)
[2018-09-15] MEDS: ENOXAPARIN 30 MG/0.3 ML SYRINGE SUBCUT SCH (20:21)
[2018-09-15] MEDS: ATORVASTATIN 40 MG TABLET PO SCH (20:22)
[2018-09-16] MEDS: methylPREDNISolone SOD SUC 40 MG/1 ML VIAL IV SCH ×3 (00:02→22:34)
[2018-09-16] MEDS: INSULIN REGULAR 100 UNIT/ML SUBCUT SCH ×6 (00:22→21:58)
[2018-09-16] MEDS: ACETYLCYSTEINE 20% 800 MG/4 ML VIAL RESP TX SCH ×4 (00:50→23:00)
[2018-09-16] MEDS: ALBUTEROL/IPRATROPIUM 3 ML NEB RESP TX SCH ×4 (00:50→18:50)
[2018-09-16 05:07] LABS: Basophils % 0.2 % (0.0-0.8); Eosinophils # 0.1 10*3/uL (0.0-0.87); Eosinophils % 0.7 % (0.00-10.9); Hematocrit 31.7 VOL% (42.0-52.0); Hemoglobin 10.3 GM/DL (14.0-18.0); Immature Granulocytes % 3.3 %; Immature Granulocytes Absolute 0.29 #; Lymphocytes # 0.5 10*3/uL (1.4-4.0); Lymphocytes % 5.4 % (21.2-54.2); Mean Corpuscular HGB Conc 32.5 GM/DL (32-36); Mean Corpuscular Volume 86.8 FL (87-102); Mean Platelet Volume 10.6 FL (9.6-12.0); Monocytes % 9.9 % (1.7-12.7); Neutrophils % 80.5 % (38.7-73.9); Platelet Count 230 T/CUMM (130-400); Red Blood Count 3.65 MC/CUMM (3.8-5.5); Red Cell Distribution Width 15.8 % (9.3-17.3); White Blood Count 8.8 T/CUMM (4-12)
[2018-09-16 05:29] LABS: Osmolality,Calculated 292.4 MOS/KG (273-304)
[2018-09-16] MEDS: METOPROLOL TARTRATE 25 MG TABLET PO SCH ×2 (09:00→21:53)
[2018-09-16] MEDS: SEVELAMER CARBONATE POWDER 2.4 GM PACK PO SCH ×3 (09:01→17:34)
[2018-09-16] MEDS: ASPIRIN CHEW 81 MG TABLET PO SCH (09:01)
[2018-09-16] MEDS: CLINDAMYCIN 300 MG CAPSULE PO SCH ×2 (11:39→17:34)
[2018-09-16] MEDS: ENOXAPARIN 30 MG/0.3 ML SYRINGE SUBCUT SCH (21:53)
[2018-09-16] MEDS: ATORVASTATIN 40 MG TABLET PO SCH (21:53)
[2018-09-17] MEDS: CLINDAMYCIN 300 MG CAPSULE PO SCH ×3 (00:15→12:54)
[2018-09-17] MEDS: ALBUTEROL/IPRATROPIUM 3 ML NEB RESP TX SCH ×3 (00:40→14:00)
[2018-09-17] MEDS: INSULIN REGULAR 100 UNIT/ML SUBCUT SCH ×4 (00:58→16:24)
[2018-09-17] MEDS ORDERED: diphenhydrAMINE CAP 25 MG CAPSULE PO PRN (02:36)
[2018-09-17] MEDS ORDERED: SKIN HEALING OINT (AQUAPHOR) 50 GM TUBE TOP PRN (02:37)
[2018-09-17 05:45] LABS: Basophils % 0.3 % (0.0-0.8); Eosinophils # 0.1 10*3/uL (0.0-0.87); Hematocrit 31.8 VOL% (42.0-52.0); Hemoglobin 10.1 GM/DL (14.0-18.0); Immature Granulocytes % 2.8 %; Immature Granulocytes Absolute 0.26 #; Lymphocytes # 0.9 10*3/uL (1.4-4.0); Lymphocytes % 9.1 % (21.2-54.2); Mean Corpuscular HGB Conc 31.8 GM/DL (32-36); Mean Corpuscular Volume 87.8 FL (87-102); Mean Platelet Volume 10.3 FL (9.6-12.0); Monocytes % 9.6 % (1.7-12.7); Neutrophils % 77.2 % (38.7-73.9); Platelet Count 250 T/CUMM (130-400); Red Blood Count 3.62 MC/CUMM (3.8-5.5); Red Cell Distribution Width 15.9 % (9.3-17.3); White Blood Count 9.4 T/CUMM (4-12)
[2018-09-17 06:46] LABS: Albumin 3.1 G/DL (3.4-5.0); Bilirubin,Total 0.8 MG/DL (0.2-1.0); Calcium 10.8 MG/DL (8.5-10.1); Osmolality,Calculated 304.5 MOS/KG (273-304); Total Protein 7.7 G/DL (6.4-8.3)
[2018-09-17] MEDS: ACETYLCYSTEINE 20% 800 MG/4 ML VIAL RESP TX SCH ×2 (08:14→14:00)
[2018-09-17] MEDS: METOPROLOL TARTRATE 25 MG TABLET PO SCH (08:14)
[2018-09-17] MEDS: ASPIRIN CHEW 81 MG TABLET PO SCH (08:14)
[2018-09-17] MEDS: SEVELAMER CARBONATE POWDER 2.4 GM PACK PO SCH ×2 (08:16→12:54)
[2018-09-17] MEDS ORDERED: METOPROLOL TARTRATE 25 MG TABLET PO SCH (09:00)
[2018-09-17] MEDS ORDERED: FLUCONAZOLE 200 MG TABLET PO SCH (10:41)
[2018-09-17] MEDS: methylPREDNISolone SOD SUC 40 MG/1 ML VIAL IV SCH (12:54)
[2018-09-17 16:48] VITALS: BP 130/86
== END 2018-09-17 17:08 | DRG 812 ==
LOC: EDUNIT# → EDBD → N.ED 09:07 → SUATTDRO 11:54 → N.5E 11:55 → N.ICU 09-04 07:03 → N.2E 09-16 10:59
PROVIDERS: ADMIT Phlebology; ATTEND Family Medicine

== ENCOUNTER 2019-03-07 08:32 | Inpatient (IN) ==
[2019-03-07] MEDS ORDERED: NALOXONE 0.4 MG/ML VIAL ONE (08:35)
[2019-03-07] MEDS ORDERED: SODIUM CHLORIDE 0.9% 1,000 ML IV STA (08:54)
[2019-03-07] MEDS ORDERED: ETOMIDATE 20 MG/10 ML VIAL IV ONE (09:02)
[2019-03-07] MEDS ORDERED: ROCURONIUM 100 MG/10 ML VIAL IV ONE (09:02)
[2019-03-07 09:15] LABS: ABG Base Excess -4.1 MMOL/L (-2.5-2.5); ABG Oxygen Saturation 98.1 % (95-100); ABG PCO2 55.8 MM HG (35-48); ABG TCO2 22.1 MMOL/L (23-27)
[2019-03-07 09:26] LABS: Basophils % 0.4 % (0.0-0.8); Eosinophils % 0.2 % (0.00-10.9); Hematocrit 33.1 VOL% (42.0-52.0); Immature Granulocytes % 0.6 %; Immature Granulocytes Absolute 0.03 #; Lymphocytes # 0.2 10*3/uL (1.4-4.0); Lymphocytes % 4.5 % (21.2-54.2); Mean Corpuscular HGB Conc 30.2 GM/DL (32-36); Mean Corpuscular Volume 91.2 FL (87-102); Mean Platelet Volume 11.5 FL (9.6-12.0); Monocytes % 7.4 % (1.7-12.7); Neutrophils % 86.9 % (38.7-73.9); Platelet Count 122 T/CUMM (130-400); Red Blood Count 3.63 MC/CUMM (3.8-5.5); Red Cell Distribution Width 15.7 % (9.3-17.3); White Blood Count 5.1 T/CUMM (4-12)
[2019-03-07 09:35] LABS: INR 1.1; PT Patient Result 11.4 SECS (9.6-12.2); Partial Thromboplastin Time 28.9 SECS (20.8-36.0)
[2019-03-07 09:46] LABS: Lymphocytes 2 % (20-55); Segmented Neutrophils 92 % (50-85); Total Cells Counted 100
[2019-03-07 09:47] LABS: Hypochromasia 1+; Platelet Estimate Normal
[2019-03-07 09:56] LABS: Albumin 3.4 G/DL (3.4-5.0); Bilirubin,Total 0.8 MG/DL (0.2-1.0); Calcium 9.6 MG/DL (8.5-10.1); Osmolality,Calculated 302.3 MOS/KG (273-304); Thyroid Stimulating Hormone 1.94 uIU/ml (0.358-3.74); Total Protein 7.6 G/DL (6.4-8.3)
[2019-03-07 10:23] LABS: Prolactin 47.1 NG/ML; Vitamin B12 765 PG/ML (211-911)
[2019-03-07 10:30] LABS: Sedimentation Rate-Westergren 30 MM/HR (0-15)
[2019-03-07] MEDS ORDERED: ALBUTEROL 2.5 MG/3 ML NEB RESP TX PRN (11:00)
[2019-03-07] MEDS ORDERED: ACETAMINOPHEN 325 MG TABLET PO PRN (11:00)
[2019-03-07] MEDS ORDERED: DOCUSATE SODIUM 100 MG CAPSULE PO PRN (11:00)
[2019-03-07] MEDS ORDERED: MORPHINE 4 MG/1 ML VIAL IV PRN (11:00)
[2019-03-07] MEDS ORDERED: ONDANSETRON 4 MG/2 ML VIAL IV PRN (11:00)
[2019-03-07] MEDS ORDERED: MAGNESIUM HYDROXIDE SUSP 30 ML UDCUP PO PRN (11:04)
[2019-03-07] MEDS ORDERED: cloNIDine 0.1 MG TABLET PO PRN (11:04)
[2019-03-07] MEDS ORDERED: GLUCAGON 1 MG VIAL IM PRN (11:06)
[2019-03-07] MEDS: DEXTROSE 10% 250 ML BAG IV PRN ×3 (12:00→21:28)
[2019-03-07] MEDS ORDERED: SEVELAMER CARBONATE 800 MG TABLET PO SCH ×2 (12:00→14:00)
[2019-03-07] MEDS: INSULIN LISPRO 100 UNIT/ML SUBCUT SCH ×3 (12:01→21:26)
[2019-03-07] MEDS: PANTOPRAZOLE 40 MG VIAL IV SCH (12:34)
[2019-03-07] MEDS: ENOXAPARIN 30 MG/0.3 ML SYRINGE SUBCUT SCH (12:34)
[2019-03-07] MEDS: SODIUM CHLORIDE 0.9% 1,000 ML IV SCH ×2 (12:46→21:22)
[2019-03-07] MEDS ORDERED: SODIUM CHLORIDE 0.9% 1,000 ML IV ONE (14:10)
[2019-03-07] MEDS ORDERED: INFLUENZA VIRUS VACCINE 0.5 ML SYRINGE IM ONE (17:33)
[2019-03-07] MEDS: ATORVASTATIN 40 MG TABLET PO SCH (21:39)
[2019-03-07] MEDS: DOCUSATE SODIUM 100 MG CAPSULE PO SCH (21:39)
[2019-03-07] MEDS: METOPROLOL TARTRATE 25 MG TABLET PO SCH (21:39)
[2019-03-08 03:14] LABS: ABG Base Excess -0.1 MMOL/L (-2.5-2.5); ABG HCO3 24.4 MMOL/L (20-26); ABG Oxygen Saturation 99.6 % (95-100); ABG PCO2 35.2 MM HG (35-48); ABG PH 7.437 (7.35-7.45); ABG TCO2 21.5 MMOL/L (23-27); Allen Test Positive; Pt O2 Delivery Device Ventilator
[2019-03-08] MEDS: DEXTROSE 10% 250 ML BAG IV PRN (05:05)
[2019-03-08 06:38] LABS: Basophils % 0.2 % (0.0-0.8); Eosinophils # 0.1 10*3/uL (0.0-0.87); Hematocrit 29.3 VOL% (42.0-52.0); Hemoglobin 9.2 GM/DL (14.0-18.0); Immature Granulocytes % 0.6 %; Immature Granulocytes Absolute 0.03 #; Lymphocytes # 0.5 10*3/uL (1.4-4.0); Lymphocytes % 9.3 % (21.2-54.2); Mean Corpuscular HGB Conc 31.4 GM/DL (32-36); Mean Corpuscular Volume 88.3 FL (87-102); Monocytes % 12.2 % (1.7-12.7); Neutrophils % 76.7 % (38.7-73.9); Platelet Count 127 T/CUMM (130-400); Red Blood Count 3.32 MC/CUMM (3.8-5.5); Red Cell Distribution Width 16.3 % (9.3-17.3); White Blood Count 5.2 T/CUMM (4-12)
[2019-03-08] MEDS: INSULIN LISPRO 100 UNIT/ML SUBCUT SCH ×5 (06:48→20:32)
[2019-03-08 06:58] LABS: Albumin 2.6 G/DL (3.4-5.0); Bilirubin,Total 0.8 MG/DL (0.2-1.0); Calcium 9.8 MG/DL (8.5-10.1); Total Protein 6.4 G/DL (6.4-8.3)
[2019-03-08 07:01] LABS: Prealbumin 35.8 MG/DL (20-40)
[2019-03-08] MEDS ORDERED: ASPIRIN EC 81 MG TABLET PO SCH (08:00)
[2019-03-08] MEDS ORDERED: CINACALCET 30 MG TABLET PO SCH (08:00)
[2019-03-08] MEDS ORDERED: ASPIRIN CHEW 81 MG TABLET PO ONE (09:08)
[2019-03-08] MEDS: OMEGA 3 ACID ETHYL ESTERS 1 GM CAPSULE PO SCH (09:36)
[2019-03-08] MEDS: DOCUSATE SODIUM 100 MG CAPSULE PO SCH ×2 (09:36→20:31)
[2019-03-08] MEDS: ASPIRIN CHEW 81 MG TABLET PO SCH (09:36)
[2019-03-08] MEDS: amLODIPine 10 MG TABLET PO SCH (09:45)
[2019-03-08] MEDS: METOPROLOL TARTRATE 25 MG TABLET PO SCH ×2 (09:46→20:31)
[2019-03-08] MEDS ORDERED: VANCOMYCIN INJ 750 MG in SODIUM CHLORIDE 0.9% 250 ML IV PRN (10:41)
[2019-03-08] MEDS: PANTOPRAZOLE 40 MG VIAL IV SCH (11:41)
[2019-03-08] MEDS: SODIUM CHLORIDE 0.9% 1,000 ML IV SCH ×2 (11:43→12:32)
[2019-03-08] MEDS: ENOXAPARIN 30 MG/0.3 ML SYRINGE SUBCUT SCH (12:37)
[2019-03-08] MEDS ORDERED: VANCOMYCIN INJ 1,750 MG in SODIUM CHLORIDE 0.9% 500 ML IV ONE (15:00)
[2019-03-08] MEDS ORDERED: HEPARIN 10,000 UNIT/10 ML VIAL IV SCH (15:30)
[2019-03-08] MEDS: ATORVASTATIN 40 MG TABLET PO SCH (20:31)
[2019-03-09] MEDS: INSULIN LISPRO 100 UNIT/ML SUBCUT SCH ×3 (00:54→07:43)
[2019-03-09] MEDS: SODIUM CHLORIDE 0.9% 1,000 ML IV SCH ×2 (01:58→02:34)
[2019-03-09 03:30] LABS: ABG Base Excess 1.4 MMOL/L (-2.5-2.5); ABG HCO3 25.7 MMOL/L (20-26); ABG Oxygen Saturation 99.4 % (95-100); ABG TCO2 22.6 MMOL/L (23-27); Allen Test Positive; Pt O2 Delivery Device Ventilator
[2019-03-09 04:52] LABS: Basophils % 0.5 % (0.0-0.8); Eosinophils # 0.1 10*3/uL (0.0-0.87); Eosinophils % 1.3 % (0.00-10.9); Hematocrit 28.4 VOL% (42.0-52.0); Hemoglobin 8.8 GM/DL (14.0-18.0); Immature Granulocytes % 0.4 %; Immature Granulocytes Absolute 0.02 #; Lymphocytes # 0.5 10*3/uL (1.4-4.0); Lymphocytes % 8.6 % (21.2-54.2); Mean Corpuscular Volume 87.7 FL (87-102); Mean Platelet Volume 12.3 FL (9.6-12.0); Monocytes % 16.5 % (1.7-12.7); Neutrophils % 72.7 % (38.7-73.9); Platelet Count 116 T/CUMM (130-400); Red Blood Count 3.24 MC/CUMM (3.8-5.5); Red Cell Distribution Width 16.5 % (9.3-17.3); White Blood Count 5.5 T/CUMM (4-12)
[2019-03-09 05:15] LABS: Eosinophils 1 % (0-10); Lymphocytes 7 % (20-55); Segmented Neutrophils 80 % (50-85); Total Cells Counted 100
[2019-03-09 05:16] LABS: Hypochromasia 1+; Platelet Estimate Decreased
[2019-03-09 05:17] LABS: Calcium 9.2 MG/DL (8.5-10.1); Osmolality,Calculated 278.2 MOS/KG (273-304)
[2019-03-09] MEDS: DOCUSATE SODIUM 100 MG CAPSULE PO SCH ×2 (08:29→20:29)
[2019-03-09] MEDS: amLODIPine 10 MG TABLET PO SCH (08:29)
[2019-03-09] MEDS: METOPROLOL TARTRATE 25 MG TABLET PO SCH ×2 (08:29→20:26)
[2019-03-09] MEDS: OMEGA 3 ACID ETHYL ESTERS 1 GM CAPSULE PO SCH (08:30)
[2019-03-09] MEDS: ASPIRIN CHEW 81 MG TABLET PO SCH (08:30)
[2019-03-09] MEDS: PANTOPRAZOLE 40 MG VIAL IV SCH (12:38)
[2019-03-09] MEDS: ENOXAPARIN 30 MG/0.3 ML SYRINGE SUBCUT SCH (12:38)
[2019-03-09] MEDS ORDERED: VANCOMYCIN INJ 750 MG in SODIUM CHLORIDE 0.9% 250 ML IV ONE (18:00)
[2019-03-09] MEDS: ATORVASTATIN 40 MG TABLET PO SCH (20:29)
[2019-03-10 05:42] LABS: Calcium 9.6 MG/DL (8.5-10.1); Osmolality,Calculated 274.1 MOS/KG (273-304)
[2019-03-10] MEDS: OMEGA 3 ACID ETHYL ESTERS 1 GM CAPSULE PO SCH (09:36)
[2019-03-10] MEDS: amLODIPine 10 MG TABLET PO SCH (09:36)
[2019-03-10] MEDS: ASPIRIN CHEW 81 MG TABLET PO SCH (09:37)
[2019-03-10] MEDS: METOPROLOL TARTRATE 25 MG TABLET PO SCH ×2 (09:37→20:30)
[2019-03-10] MEDS: DOCUSATE SODIUM 100 MG CAPSULE PO SCH ×2 (09:37→20:30)
[2019-03-10] MEDS: PANTOPRAZOLE 40 MG VIAL IV SCH (13:29)
[2019-03-10] MEDS: ENOXAPARIN 30 MG/0.3 ML SYRINGE SUBCUT SCH (13:29)
[2019-03-10] MEDS: ATORVASTATIN 40 MG TABLET PO SCH (20:30)
[2019-03-11] MEDS: ASPIRIN CHEW 81 MG TABLET PO SCH (08:17)
[2019-03-11] MEDS: amLODIPine 10 MG TABLET PO SCH (08:17)
[2019-03-11] MEDS: METOPROLOL TARTRATE 25 MG TABLET PO SCH ×2 (08:17→20:45)
[2019-03-11] MEDS: OMEGA 3 ACID ETHYL ESTERS 1 GM CAPSULE PO SCH (08:17)
[2019-03-11] MEDS: DOCUSATE SODIUM 100 MG CAPSULE PO SCH ×2 (08:17→20:45)
[2019-03-11] MEDS: ENOXAPARIN 30 MG/0.3 ML SYRINGE SUBCUT SCH (11:27)
[2019-03-11] MEDS: PANTOPRAZOLE 40 MG VIAL IV SCH (11:27)
[2019-03-11] MEDS ORDERED: VANCOMYCIN INJ 500 MG in SODIUM CHLORIDE 0.9% 100 ML IV PRN (15:30)
[2019-03-11] MEDS ORDERED: VANCOMYCIN INJ 500 MG in SODIUM CHLORIDE 0.9% 100 ML IV ONE (18:00)
[2019-03-11] MEDS ORDERED: VANCOMYCIN INJ 750 MG in SODIUM CHLORIDE 0.9% 250 ML IV ONE (18:00)
[2019-03-11] MEDS: ATORVASTATIN 40 MG TABLET PO SCH (20:45)
[2019-03-12 07:46] VITALS: BP 164/94
[2019-03-12] MEDS: OMEGA 3 ACID ETHYL ESTERS 1 GM CAPSULE PO SCH (08:35)
[2019-03-12] MEDS: ASPIRIN CHEW 81 MG TABLET PO SCH (08:35)
[2019-03-12] MEDS: DOCUSATE SODIUM 100 MG CAPSULE PO SCH (08:35)
[2019-03-12] MEDS: amLODIPine 10 MG TABLET PO SCH (08:35)
[2019-03-12] MEDS: METOPROLOL TARTRATE 25 MG TABLET PO SCH (08:35)
== END 2019-03-12 11:22 | DRG 861 ==
LOC: EDBD → EDUNIT# → N.ED 08:32 → N.EDINP 11:00 → SUATTDRO 11:00 → N.CC 11:17 → N.2E 03-10 16:24
PROVIDERS: ADMIT Internal Medicine; ATTEND Internal Medicine

== ENCOUNTER 2019-03-13 16:59 | Inpatient (IN) ==
[2019-03-13] MEDS ORDERED: ONDANSETRON 4 MG/2 ML VIAL IV STA (17:24)
[2019-03-13 18:51] LABS: Basophils % 0.6 % (0.0-0.8); Eosinophils # 0.2 10*3/uL (0.0-0.87); Eosinophils % 3.9 % (0.00-10.9); Hematocrit 30.7 VOL% (42.0-52.0); Hemoglobin 9.9 GM/DL (14.0-18.0); Immature Granulocytes % 0.2 %; Immature Granulocytes Absolute 0.01 #; Lymphocytes # 0.9 10*3/uL (1.4-4.0); Lymphocytes % 19.6 % (21.2-54.2); Mean Corpuscular HGB Conc 32.2 GM/DL (32-36); Mean Corpuscular Volume 85.3 FL (87-102); Mean Platelet Volume 10.8 FL (9.6-12.0); Neutrophils % 64.7 % (38.7-73.9); Platelet Count 214 T/CUMM (130-400); Red Cell Distribution Width 15.6 % (9.3-17.3); White Blood Count 4.6 T/CUMM (4-12)
[2019-03-13] MEDS ORDERED: ALBUTEROL/IPRATROPIUM 3 ML NEB RESP TX STA (18:54)
[2019-03-13] MEDS ORDERED: cefTRIAXone 1,000 MG in SODIUM CHLORIDE 0.9% 100 ML IV STA (18:54)
[2019-03-13 19:01] LABS: INR 1.1; Partial Thromboplastin Time 31.6 SECS (20.8-36.0)
[2019-03-13 19:13] LABS: Alanine Aminotransferase 10 U/L (16-61); Alkaline Phosphatase 278 U/L (45-117); Aspartate Amino Transferase 21 U/L (0-37); Blood Urea Nitrogen 66 MG/DL (7-18); Calcium 9.7 MG/DL (8.5-10.1); Estimated Glom Filtration Rate 9 ML/MIN; Glucose 80 MG/DL (74-106); Osmolality,Calculated 287.1 MOS/KG (273-304); Total Protein 7.7 G/DL (6.4-8.3)
[2019-03-13] MEDS ORDERED: LABETALOL 20 MG/4 ML SYRINGE IV PRN (20:17)
[2019-03-13] MEDS ORDERED: ONDANSETRON 4 MG/2 ML VIAL IV PRN (20:17)
[2019-03-13] MEDS ORDERED: GLUCAGON 1 MG VIAL IM PRN (20:17)
[2019-03-13 21:09] LABS: Apearance,Urine Slightly Hazy (Clear); Bilirubin,Urine Negative (Negative); Blood, Urine Small mg/dL (Negative); Glucose,Urine (UA) 50 mg/dL (Negative); Ketones,Urine Negative (Negative); Nitrite,Urine Negative (Negative); Protein,Urine 30 MG/DL; RBC,Urine 1 /HPF (0-4); Renal Epithelial Cells,Urine Occasional /HPF (<1); Squamous Epithelial Cell,Urine Occasional /HPF (0-10); Urine Color Straw (Yellow); Urine Specific Gravity 1.006 (1.001-1.035); Urine Urobilinogen < 2.0 EU/DL (0.2-1.0); WBC,Urine 4 /HPF (0-6)
[2019-03-13 21:20] LABS: Barbiturates Screen,Urine Negative (Negative); Benzodiazepines Screen,Urine Negative (Negative); Cannabinoid Screen,Urine Negative (Negative); Opiate Screen,Urine Negative (Negative); Phencyclidine Screen,Urine Negative (Negative)
[2019-03-13] MEDS ORDERED: DEXTROSE 10% 250 ML BAG IV PRN (21:42)
[2019-03-13] MEDS ORDERED: LEVOFLOXACIN INJ 750 MG in PREMIX 1 EACH IV ONE (22:00)
[2019-03-13 22:52] LABS: Risk Ratio 2.25; VLDL CHOLESTEROL 18.6 MG/DL
[2019-03-13] MEDS: INSULIN LISPRO 100 UNIT/ML SUBCUT SCH (23:30)
[2019-03-13] MEDS: SODIUM CHLORIDE 0.9% 1,000 ML IV SCH (23:44)
[2019-03-14] MEDS: ALBUTEROL/IPRATROPIUM 3 ML NEB RESP TX SCH ×4 (00:26→19:00)
[2019-03-14 03:08] LABS: Basophils % 0.5 % (0.0-0.8); Eosinophils # 0.2 10*3/uL (0.0-0.87); Eosinophils % 3.9 % (0.00-10.9); Hematocrit 30.6 VOL% (42.0-52.0); Hemoglobin 9.7 GM/DL (14.0-18.0); Immature Granulocytes % 0.2 %; Immature Granulocytes Absolute 0.01 #; Lymphocytes # 0.8 10*3/uL (1.4-4.0); Lymphocytes % 18.2 % (21.2-54.2); Mean Corpuscular HGB Conc 31.7 GM/DL (32-36); Mean Corpuscular Volume 87.4 FL (87-102); Monocytes % 14.5 % (1.7-12.7); Neutrophils % 62.7 % (38.7-73.9); Platelet Count 182 T/CUMM (130-400); Red Cell Distribution Width 15.7 % (9.3-17.3); White Blood Count 4.1 T/CUMM (4-12)
[2019-03-14 03:17] LABS: Osmolality,Calculated 290.8 MOS/KG (273-304)
[2019-03-14] MEDS: INSULIN LISPRO 100 UNIT/ML SUBCUT SCH ×4 (08:03→20:30)
[2019-03-14] MEDS: PANTOPRAZOLE 40 MG VIAL IV SCH (08:27)
[2019-03-14] MEDS: CLOPIDOGREL 75 MG TABLET PO SCH (09:00)
[2019-03-14] MEDS ORDERED: HEPARIN 10,000 UNIT/10 ML VIAL IV SCH (12:00)
[2019-03-14] MEDS: SODIUM CHLORIDE 0.9% 1,000 ML IV SCH (15:41)
[2019-03-15] MEDS: ALBUTEROL/IPRATROPIUM 3 ML NEB RESP TX SCH ×4 (01:37→20:26)
[2019-03-15] MEDS: METHOCARBAMOL 750 MG TABLET PO SCH ×5 (01:54→20:56)
[2019-03-15] MEDS: INSULIN LISPRO 100 UNIT/ML SUBCUT SCH ×4 (08:43→20:56)
[2019-03-15] MEDS: CLOPIDOGREL 75 MG TABLET PO SCH (08:51)
[2019-03-15] MEDS: PANTOPRAZOLE 40 MG VIAL IV SCH (08:51)
[2019-03-15] MEDS ORDERED: VANCOMYCIN INJ 750 MG in SODIUM CHLORIDE 0.9% 250 ML IV PRN (13:34)
[2019-03-15] MEDS ORDERED: VANCOMYCIN INJ 1,750 MG in SODIUM CHLORIDE 0.9% 500 ML IV ONE (14:00)
[2019-03-15] MEDS: LEVOFLOXACIN INJ 500 MG in PREMIX 1 EACH IV SCH (21:41)
[2019-03-16] MEDS: ALBUTEROL/IPRATROPIUM 3 ML NEB RESP TX SCH ×4 (02:10→19:52)
[2019-03-16] MEDS: INSULIN LISPRO 100 UNIT/ML SUBCUT SCH ×4 (08:06→21:30)
[2019-03-16] MEDS: PANTOPRAZOLE 40 MG VIAL IV SCH (08:22)
[2019-03-16] MEDS: METHOCARBAMOL 750 MG TABLET PO SCH ×4 (08:22→20:00)
[2019-03-16] MEDS: CLOPIDOGREL 75 MG TABLET PO SCH (08:22)
[2019-03-16] MEDS ORDERED: VANCOMYCIN INJ 750 MG in SODIUM CHLORIDE 0.9% 250 ML IV ONE (17:00)
[2019-03-17] MEDS: ALBUTEROL/IPRATROPIUM 3 ML NEB RESP TX SCH ×4 (01:00→19:44)
[2019-03-17] MEDS: INSULIN LISPRO 100 UNIT/ML SUBCUT SCH ×4 (07:32→20:07)
[2019-03-17] MEDS: METHOCARBAMOL 750 MG TABLET PO SCH ×4 (08:55→20:06)
[2019-03-17] MEDS: CLOPIDOGREL 75 MG TABLET PO SCH (08:55)
[2019-03-17] MEDS: PANTOPRAZOLE 40 MG VIAL IV SCH (08:55)
[2019-03-17] MEDS: LEVOFLOXACIN INJ 500 MG in PREMIX 1 EACH IV SCH (21:01)
[2019-03-18] MEDS: ALBUTEROL/IPRATROPIUM 3 ML NEB RESP TX SCH ×4 (00:20→19:01)
[2019-03-18 05:11] LABS: Basophils % 0.4 % (0.0-0.8); Eosinophils # 0.2 10*3/uL (0.0-0.87); Eosinophils % 3.1 % (0.00-10.9); Hemoglobin 10.8 GM/DL (14.0-18.0); Immature Granulocytes % 0.2 %; Immature Granulocytes Absolute 0.01 #; Lymphocytes # 0.8 10*3/uL (1.4-4.0); Lymphocytes % 17.2 % (21.2-54.2); Mean Corpuscular HGB Conc 31.8 GM/DL (32-36); Mean Corpuscular Volume 86.3 FL (87-102); Mean Platelet Volume 11.1 FL (9.6-12.0); Monocytes % 15.7 % (1.7-12.7); Neutrophils % 63.4 % (38.7-73.9); Platelet Count 212 T/CUMM (130-400); Red Blood Count 3.94 MC/CUMM (3.8-5.5); Red Cell Distribution Width 15.9 % (9.3-17.3); White Blood Count 4.8 T/CUMM (4-12)
[2019-03-18 05:39] LABS: Calcium 10.6 MG/DL (8.5-10.1); Osmolality,Calculated 288.8 MOS/KG (273-304)
[2019-03-18 05:49] LABS: Eosinophils 3 % (0-10); Hypochromasia 1+; Lymphocytes 17 % (20-55); Ovalocytes Slight; Platelet Estimate Adequate; Segmented Neutrophils 67 % (50-85); Total Cells Counted 100
[2019-03-18] MEDS: INSULIN LISPRO 100 UNIT/ML SUBCUT SCH ×4 (07:11→21:57)
[2019-03-18] MEDS: CLOPIDOGREL 75 MG TABLET PO SCH (08:03)
[2019-03-18] MEDS: METHOCARBAMOL 750 MG TABLET PO SCH ×4 (08:04→22:01)
[2019-03-18] MEDS: PANTOPRAZOLE 40 MG TABLET PO SCH (08:04)
[2019-03-18] MEDS ORDERED: VANCOMYCIN INJ 750 MG in SODIUM CHLORIDE 0.9% 250 ML IV ONE ×2 (12:00→17:00)
[2019-03-18] MEDS ORDERED: ceFAZolin 2,000 MG in PREMIX 1 EACH IV SCH (17:00)
[2019-03-19] MEDS: ALBUTEROL/IPRATROPIUM 3 ML NEB RESP TX SCH ×4 (00:41→18:58)
[2019-03-19] MEDS: INSULIN LISPRO 100 UNIT/ML SUBCUT SCH ×4 (08:36→22:13)
[2019-03-19] MEDS: PANTOPRAZOLE 40 MG TABLET PO SCH (09:20)
[2019-03-19] MEDS: CLOPIDOGREL 75 MG TABLET PO SCH (09:21)
[2019-03-19] MEDS: METHOCARBAMOL 750 MG TABLET PO SCH ×4 (09:21→22:14)
[2019-03-19] MEDS: LEVOFLOXACIN INJ 500 MG in PREMIX 1 EACH IV SCH (22:14)
[2019-03-19] MEDS ORDERED: LEVOFLOXACIN 500 MG TABLET PO ONE (23:00)
[2019-03-20] MEDS: ALBUTEROL/IPRATROPIUM 3 ML NEB RESP TX SCH ×3 (00:41→13:07)
[2019-03-20] MEDS: INSULIN LISPRO 100 UNIT/ML SUBCUT SCH ×2 (09:11→11:31)
[2019-03-20] MEDS: PANTOPRAZOLE 40 MG TABLET PO SCH (09:14)
[2019-03-20] MEDS: METHOCARBAMOL 750 MG TABLET PO SCH ×2 (09:14→12:37)
[2019-03-20] MEDS: CLOPIDOGREL 75 MG TABLET PO SCH (09:15)
[2019-03-20 10:55] VITALS: BP 111/81
[2019-03-20] MEDS ORDERED: SODIUM PHOSPHATE ENEMA 133 ML BOTTLE RECTAL ONE (13:01)
== END 2019-03-20 13:55 | DRG 720 ==
LOC: EDSEX → EDBD → EDUNIT# → N.ED 16:59 → N.EDINP 20:17 → SUATTDRO 20:17 → N.5E 21:12
PROVIDERS: ADMIT Hospitalist; ATTEND Internal Medicine

== ENCOUNTER 2019-06-16 11:40 | Inpatient (IN) ==
[2019-06-16 12:43] LABS: Basophils % 0.5 % (0.0-0.8); Eosinophils % 0.5 % (0.00-10.9); Hemoglobin 11.5 GM/DL (14.0-18.0); Lymphocytes # 0.4 10*3/uL (1.4-4.0); Lymphocytes % 20.2 % (21.2-54.2); Mean Corpuscular HGB Conc 31.1 GM/DL (32-36); Mean Corpuscular Volume 91.6 FL (87-102); Mean Platelet Volume 12.6 FL (9.6-12.0); Neutrophils % 64.8 % (38.7-73.9); Platelet Count 80 T/CUMM (130-400); Red Blood Count 4.04 MC/CUMM (3.8-5.5); Red Cell Distribution Width 16.2 % (9.3-17.3); White Blood Count 1.9 T/CUMM (4-12)
[2019-06-16] MEDS ORDERED: GLUCAGON 1 MG VIAL IM PRN ×2 (12:58→15:12)
[2019-06-16] MEDS ORDERED: DEXTROSE 10% 250 ML BAG IV PRN (13:30)
[2019-06-16 13:36] LABS: Bilirubin,Total 0.6 MG/DL (0.2-1.0); Calcium 9.5 MG/DL (8.5-10.1); Ferritin 2897.1 ng/ml (26-388); Osmolality,Calculated 287.8 MOS/KG (273-304); Total Protein 7.6 G/DL (6.4-8.3)
[2019-06-16] MEDS ORDERED: cefTRIAXone 1,000 MG in SODIUM CHLORIDE 0.9% 100 ML IV STA (13:45)
[2019-06-16 13:55] LABS: Band Neutrophils 1 % (0-10); Lymphocytes 22 % (20-55); Platelet Estimate Decreased; Segmented Neutrophils 69 % (50-85); Total Cells Counted 100
[2019-06-16 13:56] LABS: Anisocytosis Slight; Hypochromasia Slight; Ovalocytes Few
[2019-06-16] MEDS ORDERED: cefTRIAXone 1,000 MG VIAL IM STA (14:26)
[2019-06-16] MEDS ORDERED: DEXTROSE 50% 25 GM/50 ML VIAL IV PRN (15:12)
[2019-06-16] MEDS: INSULIN LISPRO 100 UNIT/ML SUBCUT SCH ×2 (16:55→20:00)
[2019-06-16] MEDS: ZINC GLUCONATE 50 MG TABLET PO SCH (20:45)
[2019-06-16] MEDS: HYDROXYCHLOROQUINE 200 MG TABLET PO SCH (20:45)
[2019-06-17 03:18] LABS: Hematocrit 36.2 VOL% (42.0-52.0); Hemoglobin 11.2 GM/DL (14.0-18.0); Immature Granulocytes % 0.5 %; Immature Granulocytes Absolute 0.01 #; Lymphocytes # 0.3 10*3/uL (1.4-4.0); Mean Corpuscular HGB Conc 30.9 GM/DL (32-36); Mean Corpuscular Volume 91.4 FL (87-102); Mean Platelet Volume 12.7 FL (9.6-12.0); Neutrophils % 70.5 % (38.7-73.9); Platelet Count 74 T/CUMM (130-400); Red Blood Count 3.96 MC/CUMM (3.8-5.5); Red Cell Distribution Width 16.1 % (9.3-17.3); White Blood Count 2.1 T/CUMM (4-12)
[2019-06-17 03:41] LABS: Albumin 2.9 G/DL (3.4-5.0); Bilirubin,Total 0.8 MG/DL (0.2-1.0); Calcium 9.9 MG/DL (8.5-10.1); Total Protein 7.4 G/DL (6.4-8.3)
[2019-06-17 05:29] LABS: Band Neutrophils 1 % (0-10); Lymphocytes 21 % (20-55); Segmented Neutrophils 74 % (50-85); Total Cells Counted 100
[2019-06-17 05:30] LABS: Anisocytosis 1+; Hypochromasia 1+; Ovalocytes 1+; Platelet Estimate Decreased
[2019-06-17] MEDS: HYDROXYCHLOROQUINE 200 MG TABLET PO SCH ×2 (09:47→21:15)
[2019-06-17] MEDS: INSULIN LISPRO 100 UNIT/ML SUBCUT SCH ×4 (10:45→21:15)
[2019-06-17] MEDS: cefTRIAXone 1,000 MG in SYRINGE 1 EACH IV SCH (18:13)
[2019-06-18] MEDS: ZINC GLUCONATE 50 MG TABLET PO SCH (09:28)
[2019-06-18] MEDS: HYDROXYCHLOROQUINE 200 MG TABLET PO SCH ×2 (09:28→20:26)
[2019-06-18] MEDS: INSULIN LISPRO 100 UNIT/ML SUBCUT SCH ×4 (11:14→20:25)
[2019-06-18] MEDS ORDERED: VANCOMYCIN INJ 1,000 MG in SODIUM CHLORIDE 0.9% 250 ML IV ONE (14:00)
[2019-06-18] MEDS: cefTRIAXone 1,000 MG in SYRINGE 1 EACH IV SCH (16:47)
[2019-06-19 06:21] LABS: Eosinophils % 0.5 % (0.00-10.9); Hematocrit 35.5 VOL% (42.0-52.0); Hemoglobin 10.9 GM/DL (14.0-18.0); Immature Granulocytes % 0.5 %; Immature Granulocytes Absolute 0.01 #; Lymphocytes # 0.4 10*3/uL (1.4-4.0); Lymphocytes % 20.2 % (21.2-54.2); Mean Corpuscular HGB Conc 30.7 GM/DL (32-36); Mean Corpuscular Volume 92.9 FL (87-102); Mean Platelet Volume 12.6 FL (9.6-12.0); Monocytes % 9.4 % (1.7-12.7); Neutrophils % 69.4 % (38.7-73.9); Platelet Count 74 T/CUMM (130-400); Red Blood Count 3.82 MC/CUMM (3.8-5.5); Red Cell Distribution Width 16.2 % (9.3-17.3)
[2019-06-19 06:41] LABS: Calcium 9.7 MG/DL (8.5-10.1); Osmolality,Calculated 292.1 MOS/KG (273-304)
[2019-06-19 06:50] LABS: Band Neutrophils 6 % (0-10); Hypochromasia 1+; Lymphocytes 16 % (20-55); Segmented Neutrophils 73 % (50-85); Total Cells Counted 100
[2019-06-19 06:51] LABS: Anisocytosis 1+; Ovalocytes Slight; Platelet Estimate Decreased
[2019-06-19] MEDS: HYDROXYCHLOROQUINE 200 MG TABLET PO SCH (08:43)
[2019-06-19] MEDS ORDERED: SODIUM POLYSTYRENE SULFATE 15 GM/60 ML BOTTLE PO ONE (09:00)
[2019-06-19] MEDS ORDERED: INSULIN REGULAR 10 UNIT, CALCIUM GLUCONATE 1,000 MG in DEXTROSE 10% 250 ML IV ONE (09:00)
[2019-06-19] MEDS ORDERED: ZINC SULFATE 220 MG CAPSULE PO SCH (09:00)
[2019-06-19] MEDS: INSULIN LISPRO 100 UNIT/ML SUBCUT SCH ×4 (09:11→21:10)
[2019-06-19] MEDS ORDERED: MAGNESIUM HYDROXIDE SUSP 30 ML UDCUP PO PRN (12:42)
[2019-06-19] MEDS ORDERED: MELATONIN 3 MG TABLET PO PRN (13:14)
[2019-06-19] MEDS: METHOCARBAMOL 750 MG TABLET PO SCH ×2 (14:35→21:10)
[2019-06-19] MEDS: cefTRIAXone 1,000 MG in SYRINGE 1 EACH IV SCH (14:50)
[2019-06-19] MEDS ORDERED: ATORVASTATIN 40 MG TABLET PO SCH (21:00)
[2019-06-19] MEDS: DOCUSATE SODIUM 100 MG CAPSULE PO SCH (21:10)
[2019-06-20] MEDS ORDERED: SEVELAMER CARBONATE POWDER 2.4 GM PACK PO SCH (07:30)
[2019-06-20] MEDS: DOCUSATE SODIUM 100 MG CAPSULE PO SCH (08:12)
[2019-06-20] MEDS: METHOCARBAMOL 750 MG TABLET PO SCH ×2 (08:12→14:25)
[2019-06-20] MEDS: INSULIN LISPRO 100 UNIT/ML SUBCUT SCH ×2 (08:54→12:57)
[2019-06-20] MEDS ORDERED: CLOPIDOGREL 75 MG TABLET PO SCH (09:00)
[2019-06-20] MEDS ORDERED: OMEGA 3 ACID ETHYL ESTERS 1 GM CAPSULE PO SCH (09:00)
[2019-06-20] MEDS ORDERED: ACETAMINOPHEN 500 MG TABLET PO PRN (09:30)
[2019-06-20] MEDS ORDERED: ACETAMINOPHEN 500 MG TABLET PO ONE (09:30)
[2019-06-20] MEDS ORDERED: SEVELAMER CARBONATE 800 MG TABLET PO SCH (12:00)
[2019-06-20 12:51] VITALS: BP 123/88
== END 2019-06-20 14:35 | DRG 137 ==
LOC: EDUNIT# → EDBD → N.ED 11:40 → SUATTDRO 15:12 → N.EDINP 15:12 → N.2W 16:54
PROVIDERS: ADMIT Internal Medicine; ATTEND Internal Medicine